=== PATIENT | male | born 1935 | race Caucasian/White ===

== ENCOUNTER 2019-12-04 17:12 | Emergency (ER) | payer MEDICARE, OTHER ==
[~2019-12-04] VITALS: Ht 177.8 cm; Wt 74.8 kg
[2019-12-04] MEDS: ALBUTEROL/IPRATROPIUM 3 ML NEB NEB STA (17:40)
[2019-12-04] MEDS: ACETAMINOPHEN 325 MG TAB PO ONE (17:43)
[2019-12-04 18:08] LABS: INFLUENZAE A&B ANTIGEN (RAPID) NEGATIVE (NEGATIVE); STREPTOCOCCUS GRP A ANTIGEN NEGATIVE (NEGATIVE)
--- NOTE | 2019-12-04 18:51 | Diagnostic Imaging Report ---
EXAMINATION: PA and lateral views of the chest. COMPARISON: None CLINICAL HISTORY: Cough DISCUSSION: Lines/tubes: None. Lungs: Age-related interstitial change. No consolidative pneumonia. Pleura: No pleural effusion or pneumothorax. Heart and mediastinum: The cardiomediastinal silhouette is normal. Bones and soft tissues: No acute bony abnormalities. IMPRESSION: Age-related interstitial change. No consolidative pneumonia. Signed by: Dr. Eldon Morales M.D. on 12/04/2019 6:49 PM
== END 2019-12-04 19:31 | disposition home or self-care (01) ==
LOC: ER 17:12
DX: R50.9 Fever, unspecified (principal); R05 Cough; J02.0 Streptococcal pharyngitis
CPT/HCPCS: 71046; 83518; 87070; 87400; 99284

== ENCOUNTER 2019-12-13 11:21 | Emergency (ER) | payer MEDICARE ==
[~2019-12-13] VITALS: Ht 177.8 cm; Wt 74.8 kg
--- OUTSIDE RECORDS SUMMARY | 2019-12-13 11:25 | XMS REPORT ---
[facility] Address Unknown Phone Unavailable Care Team Providers Care Distribution Estimator Name Role Phone TONIO RACHEAL Unavailable Unavailable Problems This patient has no known problems. Allergies, Adverse Reactions, Alerts This patient has no known allergies or adverse reactions. Medications This patient has no known medications. Results Test Description Test Time Test Comments Text Results Atomic Results Result Comments CHEST 2 VIEWS 2019-12-04 18:48:00 [place] [id number] Patient Name: JEOVANY JESUS MR #: [id number] : 1935 Age/Sex: 84/M Req #: [id number] Adm Physician: Ordered by: RACHEAL ELIZALDE DO Report #: [id number] Location: ER Room/Bed: Procedure: [id number] DX/CHEST 2 VIEWS Exam Date: 12/04/19 Exam Time: 1835 REPORT STATUS: Signed EXAMINATION: PA and lateral views of the chest. COMPARISON: None CLINICAL HISTORY: Cough DISCUSSION: Lines/tubes: None. Lungs: Age-related interstitial change. No consolidative pneumonia. Pleura: No pleural effusion or pneumothorax. Heart and mediastinum: The cardiomediastinal silhouette is normal. Bones and soft tissues: No acute bony abnormalities. IMPRESSION: Age- related interstitial change. No consolidative pneumonia. Signed by: Dr. Kendall Franco M.D. on 12/04/2019 6:49 PM Dictated By: KENDALL FRANCO MD 1 849 Transcribed By: IOANA on 12/04/19 1707 COPY TO: RACHEAL ELIZALDE DO
== END 2019-12-13 12:00 | disposition home or self-care (01) ==
LOC: ER 11:21
DX: R03.1 Nonspecific low blood-pressure reading (principal); I10 Essential (primary) hypertension; E78.5 Hyperlipidemia, unspecified
CPT/HCPCS: 93005; 99282